=== PATIENT | female | born 1970 ===

== ENCOUNTER 2019-06-29 04:37 | Day surgery (SDC) | payer OTHER ==
[~2019-06-29 04:37] MED LIST: CLONAZEPAM1 MG PO; HYZAAR 50-12.51 EACH PO; IRON PO; METOTREXATE PO; SYNTHROID50 MCG PO; ZYPREXA2.5 MG PO; [UNRECOGNIZED DRUG - OTHER] PO
== END 2019-06-29 11:05 | disposition home or self-care (01) ==
LOC: CIR.AMB 04:37 → ADM 09:30 → CIR.AMB 10:45
DX: M77.02 Medial epicondylitis, left elbow (principal); G56.22 Lesion of ulnar nerve, left upper limb